=== PATIENT | male | born 1970 | race Caucasian/White ===

== ENCOUNTER 2019-11-11 22:50 | Emergency (ER) | payer OTHER, SELFPAY ==
[2019-11-11] MEDS ORDERED: ATROPINE SULF 1MG/10ML SYRINGE (J0461) ONE (22:51)
[2019-11-11] MEDS ORDERED: HEPARIN SOD (PORCINE) 5000UNITS/ML 1ML VIAL/SYRINGE ONE (23:10)
[2019-11-11] MEDS ORDERED: TENECTEPLASE 50 MG KIT (TNKase) (J3101 PER 1MG) ONE (23:10)
[2019-11-11] MEDS ORDERED: ASPIRIN 81 MG CHEW TABLET As Ordered ONE (23:10)
[2019-11-11] MEDS ORDERED: TENECTEPLASE 50 MG KIT (TNKase) (J3101 PER 1MG) As Ordered ONE (23:10)
[2019-11-11] MEDS ORDERED: HEPARIN 25,000 UNITS/250 ML D5W BAG (100 UNITS/ML) (J1644 PER 1000UNITS) ONE (23:10)
[2019-11-11] MEDS ORDERED: CLOPIDOGREL 300 MG TAB (PLAVIX) ONE (23:10)
[2019-11-11] MEDS ORDERED: ASPIRIN 81 MG CHEW TABLET ONE (23:10)
[2019-11-11] MEDS ORDERED: HEPARIN SOD (PORCINE) 5000UNITS/ML 1ML VIAL/SYRINGE As Ordered ONE (23:11)
[2019-11-11] MEDS ORDERED: CLOPIDOGREL 300 MG TAB (PLAVIX) As Ordered ONE (23:11)
[2019-11-11] MEDS ORDERED: METOPROLOL 5 MG/5 ML VIAL As Ordered ONE (23:12)
[2019-11-11] MEDS ORDERED: HEPARIN 25,000 UNITS/250 ML D5W BAG (100 UNITS/ML) (J1644 PER 1000UNITS) As Ordered ONE (23:12)
[2019-11-11] MEDS ORDERED: NITROGLYCERIN 2% OINT 1 GM *U/D* PKT ONE (23:44)
[2019-11-11] MEDS ORDERED: NITROGLYCERIN 2% OINT 1 GM *U/D* PKT As Ordered ONE (23:44)
[2019-11-11] MEDS ORDERED: MORPHINE 2 MG/ML 1ML VIAL (J2270) As Ordered ONE (23:51)
[2019-11-11] MEDS ORDERED: MORPHINE 2 MG/ML 1ML VIAL (J2270) ONE (23:51)
[2019-11-12] MEDS ORDERED: DOPamine 400 MG/500 ML BAG IN D5W (800MCG/ML) (J1265) ONE
[2019-11-12] MEDS ORDERED: DOPamine 400 MG/500 ML BAG IN D5W (800MCG/ML) (J1265) As Ordered ONE
[2019-11-12] MEDS ORDERED: ONDANSETRON 4MG/2ML VIAL ONE (00:09)
[2019-11-12] MEDS ORDERED: ONDANSETRON 4MG/2ML VIAL As Ordered ONE (00:09)
[2019-11-12] MEDS ORDERED: NALOXONE 2MG/2ML SYRINGE (J2310 PER 1MG) As Ordered ONE (00:26)
[2019-11-12] MEDS ORDERED: NALOXONE 2MG/2ML SYRINGE (J2310 PER 1MG) ONE (00:26)
--- NOTE | 2019-12-20 16:45 | ECGEPIP ---
ATRIAL FIBRILLATION WITH SLOW VENTRICULAR RESPONSE MARKED ST ELEVATION, INFERIOR INJURY, ACUTE GA CLINICAL CORRELATE SEE SCANNED DOWNTIME REPORT MTDD
[2019-12-28 11:54] LABS: INR 0.92; PROTHROMBIN TIME 12.5 SECONDS (12.5-14.3)
[2019-12-28 17:18] LABS: HEMATOCRIT 45.3 % (42.0-52.0); HEMOGLOBIN 15.6 g/dl (13.5-17.5); MEAN CORPUSCULAR HGB CONC 34.4 g/dl (32.0-36.5); PLATELET COUNT, AUTOMATED 332 10^3/uL (150-450); RED BLOOD COUNT 4.87 10^6/uL (4.30-6.10); WHITE BLOOD COUNT 16.2 10^3/uL (4.0-10.0)
[2020-01-30 20:38] LABS: CK-MB VALUE MASS 1.1 NG/ML (<3.6); MB/CK RELATIVE INDEX 0.71 (< OR =4); TROPONIN I 0.02 NG/ML (< 0.10)
== END 2019-11-12 00:35 | disposition short-term general hospital (02) ==
LOC: M ED 22:50
DX: I21.3 ST elevation (STEMI) myocardial infarction of unspecified site (principal); I48.91 Unspecified atrial fibrillation; K21.9 Gastro-esophageal reflux disease without esophagitis
CPT/HCPCS: 71045; 82550; 82553; 85027; 85610; 93005; 96374; 96375; 99291; 99292; J0461; J1265; J1644; J2270; J2310; J2405; J3101; U0002